=== PATIENT | female | born 1950 | race Caucasian/White ===

== ENCOUNTER 2017-01-25 21:37 | Inpatient (IN) | payer MEDICAID ==
[~2017-01-25] VITALS: Ht 162.6 cm; Wt 85.1 kg
[2017-01-25] MEDS ORDERED: DILTIAZEM HCL 25 MG/5 ML VIAL IV ONE (22:00)
[2017-01-25 22:04] LABS: Basophils # (auto) 0.1 uL; Basophils % (auto) 0.9 % (0.0-2.0); Eosinophils # (auto) 0 uL; Eosinophils % (auto) 0.4 % (0.0-7.0); Hematocrit 48.3 % (36.0-46.0); Hemoglobin 15.9 g/dL (12.2-16.2); Lymphocytes # (auto) 2.6 uL; Lymphocytes % (auto) 27.2 % (10.0-50.0); Mean Corpuscular Hemoglobin 29.7 pg (28.0-32.0); Mean Corpuscular Hgb Conc. 32.9 g/dL (32.0-36.0); Mean Corpuscular Volume 90.3 fL (80.0-100.0); Mean Platelet Volume 8.4 fL (7.4-10.4); Monocytes # (auto) 0.4 uL; Monocytes % (auto) 4.6 % (0.0-12.0); Neutrophils # (auto) 6.4 uL; Neutrophils % (auto) 66.9 % (37.0-80.0); Platelet Count (auto) 278 10^3/uL (140-450); White Blood Cell 9.6 10^3/uL (4.4-10.8)
[2017-01-25 22:29] LABS: Albumin 3.7 g/dL (3.4-5.0); Alkaline Phosphatase 52 U/L (45-117); Anion Gap 15 (5-15); Aspartate Aminotransferase 16 U/L (15-37); BUN/Creatinine Ratio 13.2; Bilirubin, Total 0.5 mg/dL (0.2-1.0); Blood Urea Nitrogen 18 mg/dL (7-18); Calcium 9.1 mg/dL (8.5-10.1); Carbon Dioxide 18 mmol/L (21-32); Chloride 111 mmol/L (98-107); GFR African American 50 mL/min; GFR Non-African American 41 mL/min; Glucose 249 mg/dL (74-106); Potassium 3.3 mmol/L (3.5-5.1); Sodium 144 mmol/L (136-145); Total Protein 7.3 g/dL (6.4-8.2)
[2017-01-25 22:45] LABS: INR 1.52 (0.9-1.15)
[2017-01-25 22:57] LABS: B-Type Natriuretic Peptide 49.43 pg/mL (0-100)
[2017-01-25 23:02] LABS: Temperature: 22.4 C (20.0-25.0)
[2017-01-26] MEDS ORDERED: SODIUM CHLORIDE 0.9% 1,000 ML IV ONE (00:30)
[2017-01-26] MEDS ORDERED: METOPROLOL TARTRATE 25 MG TAB PO ONE (03:00)
[2017-01-26] MEDS ORDERED: ACETAMINOPHEN 325 MG TAB PO PRN (03:00)
[2017-01-26] MEDS ORDERED: POTASSIUM CHL 20 Meq TABLET PO ONE (03:00)
[2017-01-26] MEDS ORDERED: TEMAZEPAM 15 MG CAP PO PRN (03:00)
[2017-01-26] MEDS ORDERED: ONDANSETRON HCL 4 MG/2 ML VIAL IV PRN (03:00)
[2017-01-26] MEDS ORDERED: HYDROcodone-ACET 5/325MG TAB PO PRN (03:00)
[2017-01-26] MEDS ORDERED: LEVO125T66 PO (04:42)
[2017-01-26] MEDS ORDERED: WARF5TAB71 PO (04:42)
[2017-01-26] MEDS ORDERED: WARF2TAB49 PO (04:42)
[2017-01-26] MEDS ORDERED: METO-169 PO (04:42)
[2017-01-26 04:56] VITALS: BP 94/53
[2017-01-26] MEDS ORDERED: LEVOTHYROXINE SODIUM 25 MCG TAB PO SCH (07:00)
[2017-01-26 08:20] VITALS: BP 104/52
[2017-01-26 08:57] VITALS: BP 104/52
[2017-01-26] MEDS ORDERED: ASPirin 81 mg TAB PO SCH (10:00)
[2017-01-26] MEDS: FAMOTIDINE 20 MG TAB PO SCH ×2 (10:49→22:21)
[2017-01-26] MEDS: METOPROLOL TARTRATE 25 MG TAB PO SCH ×2 (10:50→22:00)
[2017-01-26] MEDS ORDERED: MET25T PO (15:39)
[2017-01-26] MEDS ORDERED: WARF7.5T20 PO (15:39)
[2017-01-26 16:30] VITALS: BP 102/63
[2017-01-26] MEDS ORDERED: WARFARIN SODIUM 2 MG TAB PO ONE (17:00)
[2017-01-26] MEDS ORDERED: WARFARIN SODIUM 5 MG TAB PO ONE (17:00)
[2017-01-26 21:09] VITALS: BP 110/52
[2017-01-27 05:19] VITALS: BP 113/63
[2017-01-27 07:29] LABS: Basophils # (auto) 0.1 uL; Basophils % (auto) 2.1 % (0.0-2.0); Eosinophils # (auto) 0.1 uL; Eosinophils % (auto) 1.5 % (0.0-7.0); Hematocrit 45.4 % (36.0-46.0); Hemoglobin 15.2 g/dL (12.2-16.2); Lymphocytes # (auto) 2.7 uL; Lymphocytes % (auto) 39.1 % (10.0-50.0); Mean Corpuscular Hgb Conc. 33.5 g/dL (32.0-36.0); Mean Corpuscular Volume 89.6 fL (80.0-100.0); Mean Platelet Volume 8.3 fL (7.4-10.4); Monocytes # (auto) 0.4 uL; Monocytes % (auto) 5.9 % (0.0-12.0); Neutrophils # (auto) 3.5 uL; Neutrophils % (auto) 51.4 % (37.0-80.0); Platelet Count (auto) 249 10^3/uL (140-450); Red Cell Distribution Width 14.2 % (11.6-16.0); White Blood Cell 6.8 10^3/uL (4.4-10.8)
[2017-01-27 07:44] LABS: Partial Thromboplastin Time 33.3 sec (22.64-33.71)
[2017-01-27 07:52] LABS: Albumin 3.7 g/dL (3.4-5.0); BUN/Creatinine Ratio 21.1; Bilirubin, Total 0.5 mg/dL (0.2-1.0); Calcium 8.9 mg/dL (8.5-10.1); Potassium 4.1 mmol/L (3.5-5.1); Total Protein 7.2 g/dL (6.4-8.2)
[2017-01-27 07:59] LABS: INR 1.52 (0.9-1.15); Prothrombin Time 15.7 sec (9.37-12.3)
[2017-01-27 08:00] VITALS: BP 115/54
[2017-01-27 11:03] VITALS: BP 115/54
[2017-01-27] MEDS ORDERED: WARFARIN SODIUM 2.5 MG TAB PO ONE (17:00)
== END 2017-01-27 12:56 | disposition home health service (06) | DRG 201 ==
LOC: EDBD 21:37 → ER 21:39 → TELE 21:40 → TELE-WESTW 01-26 03:16
PROVIDERS: ADMIT Nurse Practitioner; ATTEND Internal Medicine
DX: I48.0 Paroxysmal atrial fibrillation (principal); I10 Essential (primary) hypertension; E03.9 Hypothyroidism, unspecified; I49.8 Other specified cardiac arrhythmias; E78.5 Hyperlipidemia, unspecified; E87.6 Hypokalemia; Z90.710 Acquired absence of both cervix and uterus; Z72.0 Tobacco use; Z88.6 Allergy status to analgesic agent
CPT/HCPCS: 36415; 71010; 80053; 83735; 83880; 84443; 84484; 85025; 85379; 85610; 85730; 93005; 93306; 96361; 96374

== ENCOUNTER 2017-08-13 11:47 | Inpatient (IN) | payer MEDICAID ==
[~2017-08-13] VITALS: Ht 165.1 cm; Wt 92.6 kg
[~2017-08-13 11:47] MED LIST: LEVO125T66 PO; MET25T PO; WARF7.5T20 PO
[2017-08-13] MEDS ORDERED: SODIUM CHLORIDE 0.9% 1,000 ML IVB ONE (11:58)
[2017-08-13] MEDS ORDERED: WARF5TAB71 (12:32)
[2017-08-13] MEDS ORDERED: BETA0.0534 (12:32)
[2017-08-13] MEDS ORDERED: MELO-86 (12:32)
[2017-08-13] MEDS ORDERED: ECON1CRE (12:32)
[2017-08-13] MEDS ORDERED: GAB100C (12:32)
[2017-08-13] MEDS ORDERED: CLOB0.05 (12:32)
[2017-08-13] MEDS ORDERED: LIDO1PAD55 (12:32)
[2017-08-13] MEDS ORDERED: WARF3TAB22 (12:32)
[2017-08-13] MEDS ORDERED: MECL-87 (12:32)
[2017-08-13] MEDS ORDERED: WARF1TAB36 (12:32)
[2017-08-13] MEDS ORDERED: LEVO125T6 (12:32)
[2017-08-13] MEDS ORDERED: ENOX80IN8 (12:32)
[2017-08-13] MEDS ORDERED: ATOR20TA50 (12:32)
[2017-08-13 12:44] LABS: Basophils # (auto) 0 uL; Basophils % (auto) 0.5 % (0.0-2.0); Eosinophils # (auto) 0.1 uL; Eosinophils % (auto) 1.8 % (0.0-7.0); Hematocrit 45.5 % (36.0-46.0); Hemoglobin 15.3 g/dL (12.2-16.2); Lymphocytes % (auto) 35.7 % (10.0-50.0); Mean Corpuscular Hemoglobin 30.4 pg (28.0-32.0); Mean Corpuscular Hgb Conc. 33.5 g/dL (32.0-36.0); Mean Corpuscular Volume 90.7 fL (80.0-100.0); Mean Platelet Volume 7.9 fL (6.9-10.8); Monocytes # (auto) 0.4 uL; Platelet Count (auto) 237 10^3/uL (140-450); Red Cell Distribution Width 14.4 % (11.8-14.3); White Blood Cell 5.6 10^3/uL (4.4-10.8)
[2017-08-13 12:54] LABS: Albumin 3.3 g/dL (3.4-5.0); Anion Gap 9 (5-15); Aspartate Aminotransferase 18 U/L (15-37); BUN/Creatinine Ratio 18.4; Blood Urea Nitrogen 18 mg/dL (7-18); Calcium 8.2 mg/dL (8.5-10.1); Carbon Dioxide 23 mmol/L (21-32); Chloride 108 mmol/L (98-107); GFR African American 73 mL/min; GFR Non-African American 60 mL/min; Glucose 115 mg/dL (74-106); Magnesium 1.9 mg/dL (1.6-2.6); Potassium 3.7 mmol/L (3.5-5.1); Sodium 140 mmol/L (136-145)
[2017-08-13 12:59] LABS: Alkaline Phosphatase 44 U/L (45-117); Bilirubin, Total 0.4 mg/dL (0.2-1.0); Total Protein 6.5 g/dL (6.4-8.2)
[2017-08-13 13:01] LABS: B-Type Natriuretic Peptide 25.72 pg/mL (0-100)
[2017-08-13 13:35] LABS: Temperature: 23.5 C (20.0-25.0)
[2017-08-13] MEDS ORDERED: NITROGLYCERIN 0.4 MG SL TAB SL PRN (14:45)
[2017-08-13] MEDS ORDERED: LORazepam 0.5 MG TAB PO PRN (14:45)
[2017-08-13] MEDS ORDERED: LACTULOSE 20Gm/30ML SOLN PO PRN (14:45)
[2017-08-13] MEDS ORDERED: HYDROcodone-ACET 5/325MG TAB PO PRN (14:45)
[2017-08-13] MEDS ORDERED: PROMETHAZINE HCL 25 MG/ML 1ML IV PRN (14:45)
[2017-08-13] MEDS ORDERED: TEMAZEPAM 15 MG CAP PO PRN (14:45)
[2017-08-13] MEDS ORDERED: ACETAMINOPHEN 500 MG TAB PO PRN (14:45)
[2017-08-13] MEDS ORDERED: MORPHINE SULF INJ 2 MG/ML SYRINGE 1ML IV PRN ×2 (14:45)
[2017-08-13 15:17] LABS: Urine RBC None Seen /hpf (0 - 4)
[2017-08-13 15:28] LABS: Temperature: 21.9 C (20.0-25.0)
[2017-08-13] MEDS: SODIUM CHLORIDE 0.9% 1,000 ML IV SCH (15:31)
[2017-08-13] MEDS ORDERED: LORazepam 2MG/ML-1ML VIAL IV PRN (16:30)
[2017-08-13] MEDS ORDERED: LEVOTHYROXINE SODIUM 50 MCG TAB PO ONE (16:30)
[2017-08-13 16:32] LABS: Urine Bilirubin Negative (Negative); Urine Blood Negative /uL (Negative); Urine Color Yellow (Yellow); Urine Glucose Normal (Normal); Urine Ketone Negative (Negative); Urine Nitrite Negative (Negative); Urine Squamous Epithelial Cell FEW /hpf (<5); Urine Urobilinogen Normal (Negative); Urine pH 6.5 (5.0-8.0)
[2017-08-13] MEDS: BETAMETHASONE DIPROP0.05% TOPICAL CREAM 15GM TOP SCH (19:56)
[2017-08-13 21:05] LABS: INR 2.11 (0.9-1.15); Prothrombin Time 23.2 sec (9.37-12.3)
[2017-08-13] MEDS: GABAPENTIN 100 MG CAP PO SCH (21:58)
[2017-08-13] MEDS: METOPROLOL TARTRATE 25 MG TAB PO SCH (21:58)
[2017-08-13] MEDS: ATORVASTATIN 20 MG TAB PO SCH (21:58)
[2017-08-13] MEDS: ENOXAPARIN SOD 80 MG/0.8ML SYRINGE SC SCH (21:58)
[2017-08-14] VITALS: BP 111/54
[2017-08-14] MEDS: SODIUM CHLORIDE 0.9% 1,000 ML IV SCH ×2 (03:05→06:10)
[2017-08-14 05:00] VITALS: BP 106/53
[2017-08-14] MEDS: GABAPENTIN 100 MG CAP PO SCH ×3 (05:45→21:48)
[2017-08-14] MEDS: LEVOTHYROXINE SODIUM 50 MCG TAB PO SCH (06:01)
[2017-08-14 07:00] LABS: Cholesterol 229 mg/dL (< 200); HDL Cholesterol 94 mg/dL (40-59); LDL Cholesterol 125 mg/dL (< 100); Triglycerides 133 mg/dL (< 150)
[2017-08-14 08:00] VITALS: BP 116/69
[2017-08-14 09:00] VITALS: BP 116/69
[2017-08-14] MEDS: ENOXAPARIN SOD 80 MG/0.8ML SYRINGE SC SCH (09:45)
[2017-08-14] MEDS: ASPirin 81 mg TAB PO SCH (09:46)
[2017-08-14] MEDS: PANTOPRAZOLE 40 MG TAB PO SCH (09:46)
[2017-08-14] MEDS: METOPROLOL TARTRATE 25 MG TAB PO SCH (09:46)
[2017-08-14] MEDS: BETAMETHASONE DIPROP0.05% TOPICAL CREAM 15GM TOP SCH (13:24)
[2017-08-14 16:33] VITALS: BP 106/62
[2017-08-14] MEDS: ATORVASTATIN 20 MG TAB PO SCH (21:47)
[2017-08-14 22:00] VITALS: BP_SYST 111
[2017-08-15] VITALS (7 sets, daily range): BP systolic 112–140; BP diastolic 54–96
[2017-08-15] MEDS: SODIUM CHLORIDE 0.9% 1,000 ML IV SCH ×2 (00:48→16:35)
[2017-08-15] MEDS: GABAPENTIN 100 MG CAP PO SCH ×2 (06:23→14:23)
[2017-08-15] MEDS: LEVOTHYROXINE SODIUM 50 MCG TAB PO SCH (06:32)
[2017-08-15 06:49] LABS: Basophils # (auto) 0.1 uL; Basophils % (auto) 0.9 % (0.0-2.0); Eosinophils # (auto) 0.1 uL; Eosinophils % (auto) 1.5 % (0.0-7.0); Hematocrit 40.8 % (36.0-46.0); Hemoglobin 13.6 g/dL (12.2-16.2); Lymphocytes # (auto) 2.4 uL; Lymphocytes % (auto) 33.2 % (10.0-50.0); Mean Corpuscular Hemoglobin 30.4 pg (28.0-32.0); Mean Corpuscular Hgb Conc. 33.4 g/dL (32.0-36.0); Mean Corpuscular Volume 90.9 fL (80.0-100.0); Mean Platelet Volume 8.1 fL (6.9-10.8); Monocytes # (auto) 0.6 uL; Monocytes % (auto) 8.1 % (0.0-12.0); Neutrophils # (auto) 4.1 uL; Neutrophils % (auto) 56.3 % (37.0-80.0); Nucleated Red Blood Cells % 0.1 %; Platelet Count (auto) 192 10^3/uL (140-450); Red Cell Distribution Width 14.4 % (11.8-14.3); White Blood Cell 7.2 10^3/uL (4.4-10.8)
[2017-08-15 07:10] LABS: BUN/Creatinine Ratio 22.8; Calcium 8.1 mg/dL (8.5-10.1); Potassium 3.7 mmol/L (3.5-5.1)
[2017-08-15] MEDS: ASPirin 81 mg TAB PO SCH (09:55)
[2017-08-15] MEDS: PANTOPRAZOLE 40 MG TAB PO SCH (09:55)
[2017-08-15] MEDS: BETAMETHASONE DIPROP0.05% TOPICAL CREAM 15GM TOP SCH (09:55)
[2017-08-15] MEDS ORDERED: ENOXAPARIN SOD 80 MG/0.8ML SYRINGE SC SCH (13:00)
[2017-08-15] MEDS ORDERED: ENOX80IN SC (17:16)
[2017-08-16] MEDS ORDERED: ENOXAPARIN SOD 80 MG/0.8ML SYRINGE SC SCH (10:00)
== END 2017-08-15 19:32 | disposition home or self-care (01) | DRG 204 ==
LOC: EDBD 11:47 → ER 11:47 → TELE 11:48 → TELE-EAST 23:55
PROVIDERS: ADMIT Internal Medicine; ATTEND Nurse Practitioner Acute Care
DX: R55 Syncope and collapse (principal); G40.409 Other generalized epilepsy and epileptic syndromes, not intractable, without status epilepticus; I48.0 Paroxysmal atrial fibrillation; R00.1 Bradycardia, unspecified; E03.9 Hypothyroidism, unspecified; G62.9 Polyneuropathy, unspecified; E78.5 Hyperlipidemia, unspecified; M54.5 Low back pain; G89.29 Other chronic pain; F17.210 Nicotine dependence, cigarettes, uncomplicated; Z79.82 Long term (current) use of aspirin; Z90.710 Acquired absence of both cervix and uterus; Z79.899 Other long term (current) drug therapy; Z86.61 Personal history of infections of the central nervous system; Z80.3 Family history of malignant neoplasm of breast; Z82.49 Family history of ischemic heart disease and other diseases of the circulatory system; Z83.3 Family history of diabetes mellitus; Z88.5 Allergy status to narcotic agent; Z90.49 Acquired absence of other specified parts of digestive tract
CPT/HCPCS: 36415; 70450; 70551; 71010; 80048; 80053; 80061; 80307; 81001; 82550; 82607; 82746; 83735; 83880; 84443; 84484; 85025; 85379; 85610; 85652; 93005; 93886; 94761; 95819; 96360

== ENCOUNTER 2018-11-26 17:27 | Emergency (ER) | payer MEDICAID ==
[~2018-11-26] VITALS: Ht 172.7 cm; Wt 81.6 kg
[~2018-11-26 17:27] MED LIST changes: +ATOR20TA50; +ENOX80IN SC; +GAB100C; +MECL-87 PO; +MELO1TAB56; -MET25T PO; +MET50T PO; +WARF6TAB21 PO; -WARF7.5T20 PO
[2018-11-26 17:58] VITALS: BP 107/64
[2018-11-26] MEDS ORDERED: HYDROcodone-ACET 5/325MG TAB PO ONE (20:00)
[2018-11-26] MEDS ORDERED: HYDROcodone-ACET 5/325MG TAB ONE (20:17)
== END 2018-11-26 20:04 | disposition home or self-care (01) ==
LOC: EDBD 17:27 → ER 17:35
DX: M17.11 Unilateral primary osteoarthritis, right knee (principal); I48.91 Unspecified atrial fibrillation; E78.5 Hyperlipidemia, unspecified; E07.9 Disorder of thyroid, unspecified; E11.22 Type 2 diabetes mellitus with diabetic chronic kidney disease; I12.9 Hypertensive chronic kidney disease with stage 1 through stage 4 chronic kidney disease, or unspecified chronic kidney disease; N18.9 Chronic kidney disease, unspecified; F17.210 Nicotine dependence, cigarettes, uncomplicated; Z88.8 Allergy status to other drugs, medicaments and biological substances; Z79.01 Long term (current) use of anticoagulants; Z79.899 Other long term (current) drug therapy
CPT/HCPCS: 93971